=== PATIENT | female | born 1985 | race Caucasian/White ===

== ENCOUNTER 2017-02-08 19:44 | Emergency (ER) | payer OTHER ==
--- NOTE | 2017-02-08 20:42 | ED ---
Maximo Bonilla Salem, scribed for Yvon Fonseca MD on 02/08/17 at 2014 . Abdominal Pain/Female - HPI Summary HPI Summary: Patient is a 31 y/o F who presents to the ED with intermittent spotting for the past 2 weeks. She reports that [facility] (on the and the 14th of this month) and had urine tests that were both negative. She describes mild dark brown spotting at onset and mild light pink spotting upon wiping yesterday and today. She reports LLQ pain beginning 1700 today and states that she was instructed to come in if she experienced pain. LNMP was on and she states that her menstrual cycle is typically normal. She denies having a COMM[employer]CIAL FOOD [employer], but states that she has another appointment with [facility]. - History of Current Complaint Chief Complaint: EDAbdPain Stated Complaint: ABD PAIN/SPOTTING Time Seen by Provider: 02/08/17 20:07 Hx Obtained From: Patient Hx Last Menstrual Period: 2 WEEKS AGO Onset/Duration: Gradual Onset, Lasting Weeks, Still Present Timing: Intermittent Episode Lasting Severity Initially: Moderate Severity Currently: Moderate Pain Intensity: 4 Pain Scale Used: 0-10 Numeric Location: Discrete At: LLQ Radiates: No Aggravating Factor(s): Nothing Alleviating Factor(s): Nothing Associated Signs and Symptoms: Positive: Other: - "spotting" Allergies/Adverse Reactions: Allergies Allergy/AdvReac Type Severity Reaction Status Date / Time Buspirone [From Buspar] Allergy Hives Verified 12/31/16 13:40 Home Medications: Home Medications NK [No Home Medications Reported] 02/08/17 [History Confirmed 02/08/17] PMH/Surg Hx/FS Hx/Imm Hx Endocrine/Hematology History: Denies: Hx Diabetes, Hx Thyroid Disease Cardiovascular History: Denies: Hx Congestive Heart Failure, Hx Deep Vein Thrombosis, Hx Hypertension , Hx Myocardial Infarction, Hx Pacemaker/ICD Respiratory History: Denies: Hx Asthma, Hx Chronic Obstructive Pulmonary Disease (COPD), Hx Lung Cancer, Hx Pneumonia, Hx Pulmonary Embolism GI History: Denies: Hx Gall Bladder Disease, Hx Gastrointestinal Bleed, Hx Ulcer, Hx Urosepsis History: Denies: Hx Kidney Stones, Hx Renal Disease Sensory History: Reports: Hx Contacts or Glasses Denies: Hx Hearing Aid Opthamlomology History: Reports: Hx Contacts or Glasses Neurological History: Denies: Hx Dementia, Hx Migraine, Hx Seizures, Hx Transient Ischemic Attacks (TIA) Psychiatric History: Reports: Hx Anxiety, Hx Depression - On no medications for these conditions. Denies: Hx Panic Disorder, Hx Schizophrenia, Hx Bipolar Disorder - Surgical History Surgery Procedure, Year, and Place: tonsillectomy Infectious Disease History: Denies: Hx Clostridium Difficile, Hx Hepatitis, Hx Human Immunodeficiency Virus (HIV), Hx of Known/Suspected MRSA, Hx Shingles, Hx Tuberculosis, Hx Known/ Suspected VRE, Hx Known/Suspected VRSA, History Other Infectious Disease, Traveled Outside the [place] in Last 30 Days - Family History Known Family History: Positive: None, Cardiac Disease, Other - Mother -- lymphoma Negative: Hypertension - Social History Alcohol Use: Rare Hx Substance Use: No Substance Use Type: Reports: None Hx Tobacco Use: Yes - In process of quitting. Last smoked 2 weeks ago Smoking Status (MU): Light Every Day Tobacco Smoker Type: Cigarettes Amount Used/How Often: 2 CIGS/DAY 10+ YEARS Review of Systems Negative: Fever Positive: Abdominal Pain Positive: other - Intermittent spotting." All Other Systems Reviewed And Are Negative: Yes Physical Exam Triage Information Reviewed: Yes Vital Signs On Initial Exam: Initial Vitals Temp Pulse Resp BP Pulse Ox 98.4 F 102 16 125/88 98 02/08/17 19:55 02/08/17 19:55 02/08/17 19:55 02/08/17 19:55 02/08/17 19:55 Vital Signs Reviewed: Yes Appearance: Positive: Well-Appearing, No Pain Distress Skin: Positive: Warm Head/Face: Positive: Normal Head/Face Inspection Eyes: Positive: MI ENT: Positive: Hearing grossly normal Neck: Positive: Supple Respiratory/Lung Sounds: Positive: Clear to Auscultation, Breath Sounds Present Cardiovascular: Positive: RRR Abdomen Description: Positive: Nontender, Soft Bowel Sounds: Positive: Present Musculoskeletal: Positive: Strength/ROM Intact Neurological: Positive: Alert, Oriented to Person Place, Time Psychiatric: Positive: Affect/Mood Appropriate Diagnostics - Vital Signs Vital Signs Temp Pulse Resp BP Pulse Ox 02/08/17 19:55 98.4 F 102 16 125/88 98 - Laboratory Result Diagrams: 02/08/17 21:10 02/08/17 21:10 Lab Statement: Any lab studies that have been ordered have been reviewed, and results considered in the medical decision making process. Re-Evaluation - Re-Evaluation First Eval Re-Evaluation Time: 21:53 Change: Improved Comment: Reviewed results. Abdominal Pain Fem Course/Dx - Course Course Of Treatment: 31 y/o F presents with intermittent spotting for the past 2 weeks. She describes mild dark brown spotting at onset and mild light pink spotting upon wiping yesterday and today. She reports LLQ pain beginning 1700 today. LNMP was on 12/31/16. Pt will be DC'd to follow up. - Diagnoses Provider Diagnoses: Vaginal bleeding Discharge - Discharge Plan Condition: Stable Disposition: HOME Patient Education Materials: Dysfunctional Uterine Bleeding (ED) Referrals: Oanh Nunez MD [Medical Doctor] - Additional Instructions: Please follow up with Dr. Nunez (COMMER[employer]OD [employer]). The documentation as recorded by the Maximo george Salem accurately reflects the service I personally performed and the decisions made by me, Yvon Fonseca MD.
[2017-02-08 21:22] LABS: Hematocrit 41 % (35-47); Hemoglobin 13.6 g/dl (12.0-16.0); Mean Corpuscular HGB Conc 33 g/dl (31-36); Mean Corpuscular Hemoglobin 32 pg (27-31); Mean Corpuscular Volume 95 fL (80-97); Mean Platelet Volume 9 um3 (7.4-10.4); Red Cell Distribution Width 14 % (10.5-15); White Blood Count 8.8 10^3/ul (3.5-10.8)
[2017-02-08 21:37] LABS: Anion Gap 9 mmol/L (2-11); BUN/Creatinine Ratio 21.4 (8-20); Blood Urea Nitrogen 12 mg/dL (6-24); CO2 Carbon Dioxide 27 mmol/L (22-32); Calcium 9.8 mg/dL (8.6-10.3); Chloride 98 mmol/L (101-111); EGFR African American 162.4 (>60); EGFR Non-African American 126.3 (>60); Glucose 89 mg/dL (70-100); Potassium 3.6 mmol/L (3.5-5.0); Sodium 134 mmol/L (133-145)
[2017-02-08 22:17] VITALS: BP 121/91
== END 2017-02-08 22:17 | disposition home or self-care (01) ==
LOC: ED 19:44
DX: N93.9 Abnormal uterine and vaginal bleeding, unspecified (principal); R10.32 Left lower quadrant pain; Z32.02 Encounter for pregnancy test, result negative; F17.210 Nicotine dependence, cigarettes, uncomplicated
CPT/HCPCS: 36415; 80048; 84702; 85025; 99283

== ENCOUNTER 2018-05-26 12:37 | Emergency (ER) | payer SELFPAY ==
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
[2018-05-26 13:42] LABS: ABS Basophils 0 10^3/ul (0-0.2); ABS Eosinophils 0 10^3/ul (0-0.6); ABS Lymphocytes 2.2 10^3/ul (1.0-4.8); ABS Monocytes 0.6 10^3/ul (0-0.8); ABS Neutrophils 6.6 10^3/ul (1.5-7.7); ABS Nucleated RBC 0 10^3/ul; Eosinophil % 0.4 % (0-6); Hematocrit 41 % (35-47); Hemoglobin 13.9 g/dl (12.0-16.0); Lymphocyte % 23.4 % (25-47); Mean Corpuscular HGB Conc 34 g/dl (31-36); Mean Corpuscular Hemoglobin 29 pg (27-31); Mean Corpuscular Volume 86 fL (80-97); Mean Platelet Volume 7.8 um3 (7.4-10.4); Nucleated Red Blood Cells % 0.1; Platelet Count 237 10^3/ul (150-450); Red Blood Count 4.73 10^6/ul (4.00-5.40); Red Cell Distribution Width 14 % (10.5-15); White Blood Count 9.5 10^3/ul (3.5-10.8)
[2018-05-26 13:58] LABS: EGFR Non-African American 138.9 (>60)
[2018-05-26] MEDS ORDERED: LORazepam TAB(*) 1 MG PO ONE ×2 (14:10→19:21)
[2018-05-26 14:19] LABS: Urine Appearance Clear; Urine Blood 1+ (Negative); Urine Color Straw; Urine Ketones Negative (Negative); Urine Protein Negative (Negative); Urine Red Blood Cell Trace(0-2/hpf) (Absent); Urine Specific Gravity 1.004 (1.010-1.030); Urine Urobilinogen Negative (Negative); Urine White Blood Cell Absent (Absent)
[2018-05-26 18:47] VITALS: BP 121/63
--- NOTE | 2018-05-26 19:05 | ED ---
Progress - Progress Note Progress Note: Patient signed out from Dr. Mirza pending MHE. Per vegetable tester the Pt was diagnosed with anxiety and depression. She went home AMA. Course/Dx - Course Course Of Treatment: Patient signed out from Dr. Mirza pending MHE. Per vegetable tester the Pt was diagnosed with anxiety and depression. She went home AMA. - Diagnoses Provider Diagnoses: Anxiety, Depression Discharge - Sign-Out/Discharge Documenting (check all that apply): Patient Departure - Discharge Plan Condition: Stable Disposition: AGAINST MEDICAL ADVICE Referrals: [facility] [Outside] - Attestation Statements Document Initiated by Scribe: Yes Documenting Scribe: Blake Jenkins Provider For Whom Scribe is Documenting (Include Credential): Butch Gregorio MD Scribe Attestation: Blake Bonilla, scribed for Butch Gregorio MD on 05/27/18 at 0021.
== END 2018-05-26 19:58 | disposition left against medical advice (07) ==
LOC: ED 12:37
DX: F41.9 Anxiety disorder, unspecified (principal); F32.9 Major depressive disorder, single episode, unspecified; Z88.8 Allergy status to other drugs, medicaments and biological substances; F17.210 Nicotine dependence, cigarettes, uncomplicated
CPT/HCPCS: 36415; 80053; 80307; 80320; 80329; 81003; 81015; 84443; 84702; 85025; 99283; A9270-GY; G0480

== ENCOUNTER 2019-05-10 20:11 | Emergency (ER) | payer MEDICAID, OTHER ==
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
[2019-05-10] MEDS ORDERED: NS 0.9% 1000 ML** 2,000 ML IV SCH (21:00)
[2019-05-10] MEDS ORDERED: Ketorolac INJ* 30 MG/ML 1 ML VIAL IV ONE (21:25)
[2019-05-10 21:30] LABS: ABS Eosinophils 0.1 10^3/ul (0-0.6); ABS Lymphocytes 1.1 10^3/ul (1.0-4.8); ABS Monocytes 0.4 10^3/ul (0-0.8); ABS Neutrophils 4.8 10^3/ul (1.5-7.7); Hematocrit 38 % (35-47); Lymphocyte % 17.7 %; Mean Corpuscular HGB Conc 34 g/dL (31-36); Mean Corpuscular Hemoglobin 29 pg (27-31); Mean Corpuscular Volume 87 fL (80-97); Mean Platelet Volume 8.1 fL (7.4-10.4); Platelet Count 220 10^3/uL (150-450); Red Blood Count 4.42 10^6 /uL (3.70-4.87); Red Cell Distribution Width 14 % (10-15); White Blood Count 6.4 10^3/uL (3.5-10.8)
[2019-05-10 21:34] LABS: Urine Bacteria Absent (Absent); Urine Red Blood Cell 3+(>10/hpf) (Absent); Urine Squamous Epithelial Cell Present (Absent); Urine White Blood Cell 2+(11-20/hpf) (Absent)
[2019-05-10 21:40] LABS: Urine Appearance Cloudy; Urine Bilirubin 1 (Negative); Urine Blood 2+ (Negative); Urine Color Amber; Urine Glucose N (Negative); Urine Ketones 25 (Negative); Urine Nitrite Negative (Negative); Urine Protein 30 (Negative); Urine Specific Gravity 1.035 (1.010-1.030); Urine Urobilinogen 4 (Negative)
[2019-05-10 21:51] LABS: ALT 44 U/L (7-52); AST 32 U/L (13-39); Albumin 4.2 g/dL (3.2-5.2); Albumin/Globulin Ratio 1.5 (1-3); Alkaline Phosphatase 63 U/L (34-104); Anion Gap 6 mmol/L (2-11); BUN/Creatinine Ratio 15.5 (8-20); Blood Urea Nitrogen 11 mg/dL (6-24); C Reactive Protein < 1.00 mg/L (<8.01); CO2 Carbon Dioxide 29 mmol/L (22-32); Calcium 9.1 mg/dL (8.6-10.3); Chloride 102 mmol/L (101-111); EGFR Non-African American 94.2 (>60); Globulin 2.8 g/dL (2-4); Glucose 105 mg/dL (70-100); Potassium 3.6 mmol/L (3.5-5.0); Sodium 137 mmol/L (135-145)
[2019-05-10 21:58] LABS: HCG Pregnancy < 0.60 mIU/mL
[2019-05-10] MEDS ORDERED: Morphine 4 MG/ML VIAL (1 ml) 4 MG/ML VIAL IV ONE (22:40)
[2019-05-10] MEDS ORDERED: Ondansetron INJ* 2 MG/ML VIAL IV ONE (22:40)
[2019-05-10] MEDS ORDERED: oxyCODONE/Acetamin 5/325 MG* TAB PO ONE (23:05)
[2019-05-10] MEDS ORDERED: NS 0.9% 1000 ML** 1,000 ML IV ONE (23:23)
--- NOTE | 2019-05-10 23:33 | ED ---
Progress - Progress Note Progress Note: Patient is received as a sign out from Dr. Loja to Dr. Gregorio at 05/10/[address] ABD/PEL results. CT ABD/PEL IMPRESSION: No CT findings to correlate with patient's symptomatology. Specifically no obstructing renal or ureteral calculi. THIS REPORT WAS REVIEWED BY DR. GREGORIO. Re-Evaluation - Re-Evaluation First Eval Re-Evaluation Time: 21:44 Change: Improved Comment: pain is improved after Toradol 30 mg IV. no guarding, no rebound Second Eval Re-Evaluation Time: 22:15 Change: Unchanged Comment: Pelvic exam completed with friend Noris in room, and Shon as blood bank worker. Pt's pain is returning, will given morphine 4mg and zofran 4mg IV. Discussed differential dx. Awaiting US report. Pt advised that she is not . Third Eval Re-Evaluation Time: 23:15 Change: Unchanged Comment: Pt just getting morphine and zofran IV and one oral percocet. Discussed US results. Pt still with significant pain, radiating to her back, will order CT abd and pelvis. Pt has blood and 2+ rbc's in her UA, but she does have vaginal bleeding. A cousin has kidney stones. Pt agrees to CT abd/ pelvis. It is explained to her that it is radiation, and she wishes to proceed. Course/Dx - Course Course Of Treatment: Patient is received as a sign out from Dr. Loja to Dr. Gregorio at 05/10/[address] ABD/PEL results. CT ABD/PEL IMPRESSION : No CT findings to correlate with patient's symptomatology. Specifically no. obstructing renal or ureteral calculi. Patient was discharged to home and will follow up with PCP. - Diagnoses Provider Diagnoses: Pelvic pain Discharge ED - Sign-Out/Discharge Documenting (check all that apply): Patient Departure - DISCHARGE - Discharge Plan Condition: Stable Disposition: HOME Patient Education Materials: Pelvic Pain (ED) Forms: *Work Release Referrals: [facility] [Outside] - 2 Days Milton Iverson JR, DO [Doctor of Osteopathy] - If Needed Additional Instructions: We have given you a copy of your ultrasound results tonight, showing normal ovaries by ultrasound and a small uterine fibroid. You also had a CT of your abdomen and pelvis which was normal. At the time you are discharged the studies that were done during your pelvic exam are still pending. We will contact you if you need further treatment based on those results. In the ER you were given IV fluids, ketorolac 30mg IV, morphine 4mg IV and ondansetron 4mg IV and percocet 5/325mg orally. Please return to the ER if you have any new or worsening symptoms. - Billing Disposition and Condition Condition: STABLE Disposition: Home - Attestation Statements Document Initiated by Valorie: Yes Documenting Scribe: ALVARO RICO Provider For Whom Valorie is Documenting (Include Credential): PEPE GREGORIO MD Scribe Attestation: ALVARO Bonilla, scribed for PEPE GREGORIO MD on 05/11/19 at 0545. Scribe Documentation Reviewed: Yes Provider Attestation: The documentation as recorded by the ALVARO george accurately reflects the service I personally performed and the decisions made by me, PEPE GREGORIO MD Status of Scribe Document: Viewed
[2019-05-11 01:21] VITALS: BP 149/95
[2019-05-11 13:19] LABS: Chlamydia trachomatis NAA Negative (Negative); Neisseria gonorrhoeae (GC) NAA Negative (Negative)
--- NOTE | 2019-05-12 10:40 | ED ---
Imaging and Labs Follow Up Follow Up Type: Labs/Cultures Labs/Culture Result: Vaginal culture positive for gardnerella Patient Communication/Plan: Attempted to call pt. today at 1000 with no answer or voicemail. Rx for flagyl sent to pharmacy. WIll send letter to return call. Provider Diagnoses: Pelvic pain
== END 2019-05-11 01:21 | disposition home or self-care (01) ==
LOC: ED 20:11
DX: N93.9 Abnormal uterine and vaginal bleeding, unspecified (principal); R10.2 Pelvic and perineal pain; D25.9 Leiomyoma of uterus, unspecified; E80.4 Gilbert syndrome; R03.0 Elevated blood-pressure reading, without diagnosis of hypertension; F41.9 Anxiety disorder, unspecified; F32.9 Major depressive disorder, single episode, unspecified; F43.10 Post-traumatic stress disorder, unspecified; F17.210 Nicotine dependence, cigarettes, uncomplicated; R53.83 Other fatigue; R10.84 Generalized abdominal pain
CPT/HCPCS: 36415; 74176; 76830; 80053; 81003; 81015; 83605; 84702; 85025; 86140; 87086; 87480; 87491; 87510; 87591; 87661; 96361; 96374; 96375; 99283; A9270-GY; J1885; J2270; J2405

== ENCOUNTER 2019-08-18 16:08 | Emergency (ER) | payer SELFPAY ==
[2019-08-18 17:29] VITALS: BP 110/79
[2019-08-18] MEDS ORDERED: Ketorolac INJ* 30 MG/ML 1 ML VIAL IM ONE (17:44)
[2019-08-18] MEDS ORDERED: Penicillin VK TAB* 250 MG PO ONE (17:44)
--- NOTE | 2019-08-18 17:44 | UC ---
Dental HPI - HPI Summary HPI Summary: The patient is a 34-year-old female with a three-day history of a left lower molar abscess. She states she broke that tooth months ago. She is waiting for her insurance to kick in to see a dentist. Her left cheek feels slightly swollen. She has had no fever. She denies any history of diabetes. She states she has never been told she had a heart murmur. She has had no nausea or vomiting. She denies any chest pain or shortness of breath. - History of Current Complaint Chief Complaint: UCDentalProblem Stated Complaint: DENTAL PAIN Time Seen by Provider: 08/18/19 17:36 Hx Obtained From: Patient Hx Last Menstrual Period: 08/17/19 Onset/Duration: Gradual Onset, Lasting Days Severity: Severe Pain Intensity: 8 Pain Scale Used: 0-10 Numeric Aggravating Factor(s): Chewing Alleviating Factor(s): Nothing Related History: Swelling Dental: 1 - fractured tooth 2 - abscess - Allergies/Home Medications Allergies/Adverse Reactions: Allergies Allergy/AdvReac Type Severity Reaction Status Date / Time buspirone [From BuSpar] Allergy Anaphylatic Verified 08/18/19 17:29 Shock Home Medications: Home Medications Cholecalciferol (Vitamin D3) [Vitamin D3] 1 tab PO DAILY 08/18/19 [History Confirmed 08/18/19] Ibuprofen [Advil] 400 mg PO ONCE PRN 08/18/19 [History Confirmed 08/18/19] PMH/Surg Hx/FS Hx/Imm Hx Previously Healthy: Yes - Surgical History Surgical History: Yes Surgery Procedure, Year, and Place: tonsillectomy - Family History Known Family History: Positive: Cardiac Disease, Other - Mother -- lymphoma; neg family hx of renal calculi Negative: Hypertension - Social History Alcohol Use: Occasionally Alcohol Amount: 3x Substance Use Type: Marijuana Smoking Status (MU): Light Every Day Tobacco Smoker Type: Cigarettes Amount Used/How Often: 2 CIGS/DAY 10+ YEARS, now 1/4 PPD Review of Systems All Other Systems Reviewed And Are Negative: Yes Constitutional: Positive: Negative Skin: Positive: Negative Eyes: Positive: Negative ENT: Positive: Dental Pain Respiratory: Positive: Negative Cardiovascular: Positive: Negative Gastrointestinal: Positive: Negative Genitourinary: Positive: Negative Motor: Positive: Negative Neurovascular: Positive: Negative Musculoskeletal: Positive: Negative Neurological: Positive: Negative Psychological: Positive: Negative Physical Exam Triage Information Reviewed: Yes Appearance: Well-Appearing, No Pain Distress, Well-Nourished Vital Signs: Initial Vital Signs Temp 98.4 F 08/18/19 17:23 Pulse 82 08/18/19 17:23 Resp 18 08/18/19 17:23 BP 110/79 08/18/19 17:23 Pulse Ox 100 08/18/19 17:23 Vital Signs Reviewed: Yes Eyes: Positive: Conjunctiva Clear ENT: Positive: Hearing grossly normal, Dental tenderness, Uvula midline. Negative: Nasal congestion, Nasal drainage, Tonsillar swelling, Tonsillar exudate, Trismus, Muffled voice, Hoarse voice, Sinus tenderness Dental: Positive: Other: - see image Neck: Positive: Supple, Nontender, No Lymphadenopathy Respiratory: Positive: Lungs clear, Normal breath sounds, No respiratory distress Cardiovascular: Positive: RRR, No Murmur Musculoskeletal: Positive: ROM Intact, No Edema Neurological: Positive: Alert Psychological Exam: Normal Skin Exam: Normal Dental Complaint Course/Dx - Differential Dx/Diagnosis Provider Diagnosis: Dental abscess Discharge ED - Sign-Out/Discharge Documenting (check all that apply): Patient Departure All imaging exams completed and their final reports reviewed: No Studies - Discharge Plan Condition: Stable Disposition: HOME Prescriptions: Penicillin VK 500 MG TAB(NF) [Penicillin VK 500 mg Tab] 500 mg PO QID #28 tab Patient Education Materials: Dental Abscess (ED) Referrals: [facility] [Outside] - If Needed Additional Instructions: you will need to see a dentist to have that tooth addressed advil 3 4x day with food for pain recheck if not improved in 48 hours recheck for new or worsening symptoms - Billing Disposition and Condition Condition: STABLE Disposition: Home
== END 2019-08-18 17:55 | disposition home or self-care (01) ==
LOC: UCEAST 16:08
DX: K04.7 Periapical abscess without sinus (principal); F17.210 Nicotine dependence, cigarettes, uncomplicated; Z88.8 Allergy status to other drugs, medicaments and biological substances
CPT/HCPCS: 96372; 99212; A9270-GY; G0463; J1885

== ENCOUNTER 2019-08-29 16:57 | Emergency (ER) | payer SELFPAY ==
[2019-08-29] MEDS ORDERED: Diazepam TAB(*) 5 MG PO ONE (17:47)
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
[2019-08-29 18:20] LABS: ABS Lymphocytes 1.3 10^3/ul (1.0-4.8); ABS Monocytes 0.4 10^3/ul (0-0.8); ABS Neutrophils 5.9 10^3/ul (1.5-7.7); Eosinophil % 0.2 %; Hematocrit 37 % (35-47); Hemoglobin 12.5 g/dL (12.0-16.0); Lymphocyte % 17.1 %; Mean Corpuscular HGB Conc 34 g/dL (31-36); Mean Corpuscular Hemoglobin 30 pg (27-31); Mean Corpuscular Volume 87 fL (80-97); Mean Platelet Volume 8.6 fL (7.4-10.4); Platelet Count 241 10^3/uL (150-450); Red Blood Count 4.24 10^6 /uL (3.70-4.87); Red Cell Distribution Width 13 % (10-15); White Blood Count 7.7 10^3/uL (3.5-10.8)
[2019-08-29 18:28] LABS: Urine Appearance Cloudy; Urine Bilirubin Negative (Negative); Urine Blood Negative (Negative); Urine Color Yellow; Urine Glucose Negative (Negative); Urine Ketones Negative (Negative); Urine Nitrite Negative (Negative); Urine Protein 1+(30 mg/dL) (Negative); Urine Specific Gravity 1.021 (1.010-1.030); Urine Urobilinogen Negative (Negative)
[2019-08-29 18:37] LABS: ALT 100 U/L (7-52); AST 80 U/L (13-39); Albumin 4.5 g/dL (3.2-5.2); Albumin/Globulin Ratio 1.7 (1-3); Alkaline Phosphatase 55 U/L (34-104); Anion Gap 9 mmol/L (2-11); BUN/Creatinine Ratio 16.9 (8-20); Blood Urea Nitrogen 10 mg/dL (6-24); C Reactive Protein < 1.00 mg/L (<8.01); CO2 Carbon Dioxide 28 mmol/L (22-32); Calcium 9.3 mg/dL (8.6-10.3); Chloride 99 mmol/L (101-111); EGFR African American 141.2 (>60); EGFR Non-African American 116.7 (>60); Globulin 2.7 g/dL (2-4); Glucose 89 mg/dL (70-100); Potassium 3.9 mmol/L (3.5-5.0); Sodium 136 mmol/L (135-145); Total Protein 7.2 g/dL (6.4-8.9)
[2019-08-29 18:38] LABS: Urine Bacteria Absent (Absent); Urine Red Blood Cell Absent (Absent); Urine Squamous Epithelial Cell Present (Absent); Urine White Blood Cell Absent (Absent)
[2019-08-29] MEDS ORDERED: Ondansetron INJ* 2 MG/ML VIAL IV ONE (18:42)
[2019-08-29] MEDS ORDERED: Morphine 4 MG/ML VIAL (1 ml) 4 MG/ML VIAL IV ONE (18:42)
[2019-08-29] MEDS ORDERED: NS 0.9% 1000 ML** 1,000 ML IV ONE (18:42)
[2019-08-29 18:43] LABS: HCG Pregnancy < 0.60 mIU/mL
[2019-08-29] MEDS ORDERED: Iohexol 300* (CONTRAST) 10 ML SDV IV ONE (18:52)
[2019-08-29] MEDS ORDERED: Ketorolac INJ* 30 MG/ML 1 ML VIAL IM ONE (20:14)
[2019-08-29 20:54] VITALS: BP 119/96
== END 2019-08-29 20:40 | disposition home or self-care (01) ==
LOC: ED 16:57
DX: M62.830 Muscle spasm of back (principal); R10.9 Unspecified abdominal pain; F41.9 Anxiety disorder, unspecified; F32.9 Major depressive disorder, single episode, unspecified; F43.10 Post-traumatic stress disorder, unspecified; F17.210 Nicotine dependence, cigarettes, uncomplicated; Z88.8 Allergy status to other drugs, medicaments and biological substances
CPT/HCPCS: 36415; 74177; 76705; 80053; 81003; 81015; 83690; 84702; 85025; 86140; 96361; 96372; 96374; 96375; 99283; A9270-GY; J1885; J2270; J2405; Q9967

== ENCOUNTER 2019-08-30 17:17 | Emergency (ER) | payer SELFPAY ==
[2019-08-30] MEDS ORDERED: NS 0.9% 1000 ML** 1,000 ML IV ONE (18:27)
[2019-08-30] MEDS ORDERED: Ondansetron INJ* 2 MG/ML VIAL IV ONE ×2 (18:27→20:37)
[2019-08-30 18:43] LABS: ABS Eosinophils 0.1 10^3/ul (0-0.6); ABS Lymphocytes 1.1 10^3/ul (1.0-4.8); ABS Monocytes 0.3 10^3/ul (0-0.8); Eosinophil % 1.4 %; Hematocrit 37 % (35-47); Hemoglobin 12.4 g/dL (12.0-16.0); Lymphocyte % 20.2 %; Mean Corpuscular HGB Conc 34 g/dL (31-36); Mean Corpuscular Hemoglobin 30 pg (27-31); Mean Corpuscular Volume 88 fL (80-97); Mean Platelet Volume 8.3 fL (7.4-10.4); Platelet Count 217 10^3/uL (150-450); Red Cell Distribution Width 13 % (10-15); White Blood Count 5.6 10^3/uL (3.5-10.8)
[2019-08-30] MEDS ORDERED: Ketorolac INJ* 30 MG/ML 1 ML VIAL IV PUSH ONE (18:50)
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
[2019-08-30 19:07] LABS: ALT 65 U/L (7-52); AST 30 U/L (13-39); Albumin/Globulin Ratio 1.6 (1-3); Alkaline Phosphatase 48 U/L (34-104); Amylase 23 U/L (29-103); Anion Gap 6 mmol/L (2-11); BUN/Creatinine Ratio 13.8 (8-20); Blood Urea Nitrogen 9 mg/dL (6-24); C Reactive Protein < 1.00 mg/L (<8.01); CO2 Carbon Dioxide 28 mmol/L (22-32); Calcium 8.8 mg/dL (8.6-10.3); Chloride 104 mmol/L (101-111); EGFR African American 126.3 (>60); EGFR Non-African American 104.3 (>60); Globulin 2.5 g/dL (2-4); Glucose 91 mg/dL (70-100); Potassium 3.6 mmol/L (3.5-5.0); Sodium 138 mmol/L (135-145); Total Protein 6.5 g/dL (6.4-8.9)
[2019-08-30 19:14] LABS: HCG Pregnancy < 0.60 mIU/mL
[2019-08-30] MEDS ORDERED: Morphine 4 MG/ML VIAL (1 ml) 4 MG/ML VIAL IV ONE (20:37)
[2019-08-30] MEDS ORDERED: Methocarbamol TAB* 500 MG PO ONE (20:38)
[2019-08-30 21:38] VITALS: BP 118/68
== END 2019-08-30 21:37 | disposition home or self-care (01) ==
LOC: ED 17:17
DX: M54.6 Pain in thoracic spine (principal); R10.11 Right upper quadrant pain; R19.7 Diarrhea, unspecified; R11.10 Vomiting, unspecified; Z88.8 Allergy status to other drugs, medicaments and biological substances; F17.210 Nicotine dependence, cigarettes, uncomplicated
CPT/HCPCS: 36415; 80053; 82150; 83605; 83690; 84702; 85025; 86140; 96361; 96374; 96375; 96376; 99283; A9270-GY; J1885; J2270; J2405

== ENCOUNTER 2019-10-10 11:13 | Emergency (ER) | payer SELFPAY ==
--- NOTE | 2019-10-10 15:56 | UC ---
Respiratory Complaint HPI - HPI Summary HPI Summary: 5 days of intermittent back pain, fever vomiting,some discomfort with voiding is also coughing but does states she smokes alot--no known illness exposures but works in a restaurant - History of Current Complaint Chief Complaint: UCGeneralIllness Stated Complaint: FEVER,CHEST CONGESTION,VOMITTING Time Seen by Provider: 10/10/19 15:52 Hx Obtained From: Patient Hx Last Menstrual Period: 08/17/19 ?: No Onset/Duration: Sudden Onset, Lasting Days - 5, Still Present Timing: Intermittent Episodes Severity Initially: Moderate Severity Currently: Moderate Character: Cough: Nonproductive Aggravating Factors: Nothing Alleviating Factors: Nothing Associated Signs And Symptoms: Positive: Fever - Allergies/Home Medications Allergies/Adverse Reactions: Allergies Allergy/AdvReac Type Severity Reaction Status Date / Time buspirone [From BuSpar] Allergy Anaphylatic Verified 10/10/19 15:58 Shock Home Medications: Home Medications Cholecalciferol (Vitamin D3) [Vitamin D3] 1 tab PO DAILY 08/18/19 [History Confirmed 10/10/19] PMH/Surg Hx/FS Hx/Imm Hx Previously Healthy: Yes - Surgical History Surgical History: Yes Surgery Procedure, Year, and Place: tonsillectomy - Family History Known Family History: Positive: Cardiac Disease, Other - Mother -- lymphoma; neg family hx of renal calculi Negative: Hypertension - Social History Occupation: Employed Full-time Lives: With Family Alcohol Use: Weekly Alcohol Amount: 3x Substance Use Type: Marijuana Substance Use Comment - Amount & Last Used: daily Smoking Status (MU): Light Every Day Tobacco Smoker Type: Cigarettes Amount Used/How Often: 2 CIGS/DAY 10+ YEARS, now 1/4 PPD Have You Smoked in the Last Year: Yes Review of Systems All Other Systems Reviewed And Are Negative: Yes Constitutional: Positive: Fever, Chills, Fatigue Skin: Positive: Negative Eyes: Positive: Negative ENT: Positive: Negative Respiratory: Positive: Cough Cardiovascular: Positive: Negative Gastrointestinal: Positive: Vomiting, Nausea Genitourinary: Positive: Dysuria Motor: Positive: Negative Neurovascular: Positive: Negative Musculoskeletal: Positive: Arthralgia - mid back pain Neurological/Mental Status: Positive: Negative Psychological: Positive: Negative Is Patient Immunocompromised?: No Physical Exam Triage Information Reviewed: Yes Appearance: Well-Nourished, Ill-Appearing, Pain Distress - mild Vital Signs Reviewed: Yes Eye Exam: Normal Eyes: Positive: Conjunctiva Clear ENT Exam: Normal ENT: Positive: Normal ENT inspection, Hearing grossly normal, Pharynx normal, TMs normal, Uvula midline. Negative: Nasal congestion, Tonsillar swelling, Tonsillar exudate, Trismus, Muffled voice, Hoarse voice, Dental tenderness, Sinus tenderness Dental Exam: Normal Neck exam: Normal Neck: Positive: Supple, Nontender, No Lymphadenopathy Respiratory Exam: Normal Respiratory: Positive: Chest non-tender, Lungs clear, Normal breath sounds, No respiratory distress, No accessory muscle use Cardiovascular Exam: Normal Cardiovascular: Positive: RRR, No Murmur, Pulses Normal, Brisk Capillary Refill Abdominal Exam: Normal Abdomen Description: Positive: Nontender, No Organomegaly, Soft, CVA Tenderness (R), CVA Tenderness (L) Bowel Sounds: Positive: Present Musculoskeletal Exam: Normal Musculoskeletal: Positive: Strength Intact, ROM Intact, No Edema Neurological Exam: Normal Neurological: Positive: Alert, Muscle Tone Normal Psychological Exam: Normal Skin Exam: Normal Respiratory Course/Dx - Course Course Of Treatment: patient is going to ED for further assessment of fever back pain and hematuria-- - Differential Dx/Diagnosis Provider Diagnosis: Hematuria, Fever and chills Discharge ED - Sign-Out/Discharge Documenting (check all that apply): Patient Departure All imaging exams completed and their final reports reviewed: No Studies - Discharge Plan Condition: Stable Disposition: HOME Patient Education Materials: Fever in Adults (ED), Hematuria (ED) Referrals: No Primary Care Phys,NOPCP [Primary Care Provider] - Additional Instructions: Please go to the emergency department for further care and assessment - Billing Disposition and Condition Condition: STABLE Disposition: Home
[2019-10-10 15:58] VITALS: BP 121/82
[2019-10-10 16:20] LABS: Influenza A Molecular Negative (Negative); Influenza B Molecular Negative (Negative)
== END 2019-10-10 16:53 | disposition home or self-care (01) ==
LOC: UCEAST 11:13
DX: R50.9 Fever, unspecified (principal); R31.9 Hematuria, unspecified; M54.9 Dorsalgia, unspecified; R09.89 Other specified symptoms and signs involving the circulatory and respiratory systems; R11.2 Nausea with vomiting, unspecified; R30.0 Dysuria; F17.210 Nicotine dependence, cigarettes, uncomplicated; Z88.8 Allergy status to other drugs, medicaments and biological substances
CPT/HCPCS: 81003; 84702; 87077; 87086; 99212; G0463

== ENCOUNTER 2019-10-10 17:22 | Emergency (ER) | payer SELFPAY ==
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
[2019-10-10 20:50] LABS: ABS Basophils 0.1 10^3/ul (0-0.2); ABS Eosinophils 0.1 10^3/ul (0-0.6); ABS Lymphocytes 1.6 10^3/ul (1.0-4.8); ABS Monocytes 0.6 10^3/ul (0-0.8); ABS Neutrophils 5.7 10^3/ul (1.5-7.7); Eosinophil % 0.9 %; Hematocrit 38 % (35-47); Hemoglobin 13.3 g/dL (12.0-16.0); Lymphocyte % 19.8 %; Mean Corpuscular HGB Conc 35 g/dL (31-36); Mean Corpuscular Hemoglobin 30 pg (27-31); Mean Corpuscular Volume 87 fL (80-97); Mean Platelet Volume 8.4 fL (7.4-10.4); Platelet Count 248 10^3/uL (150-450); Red Blood Count 4.41 10^6 /uL (3.70-4.87); Red Cell Distribution Width 14 % (10-15); White Blood Count 7.9 10^3/uL (3.5-10.8)
[2019-10-10 21:12] LABS: ALT 56 U/L (7-52); AST 34 U/L (13-39); Albumin 4.4 g/dL (3.2-5.2); Albumin/Globulin Ratio 1.4 (1-3); Alkaline Phosphatase 75 U/L (34-104); Anion Gap 6 mmol/L (2-11); BUN/Creatinine Ratio 16.9 (8-20); Blood Urea Nitrogen 11 mg/dL (6-24); C Reactive Protein < 1.00 mg/L (<8.01); CO2 Carbon Dioxide 30 mmol/L (22-32); Calcium 9.7 mg/dL (8.6-10.3); Chloride 101 mmol/L (101-111); EGFR African American 126.3 (>60); EGFR Non-African American 104.3 (>60); Globulin 3.1 g/dL (2-4); Glucose 94 mg/dL (70-100); Potassium 3.4 mmol/L (3.5-5.0); Sodium 137 mmol/L (135-145); Total Protein 7.5 g/dL (6.4-8.9)
[2019-10-10 21:18] LABS: HCG Pregnancy < 0.60 mIU/mL
[2019-10-10] MEDS ORDERED: oxyCODONE TAB* 5 MG TAB PO ONE (21:51)
[2019-10-10 21:52] LABS: Urine Appearance Turbid; Urine Bilirubin Negative (Negative); Urine Blood Negative (Negative); Urine Color Yellow; Urine Glucose Negative (Negative); Urine Ketones Trace (Negative); Urine Nitrite Negative (Negative); Urine Protein Negative (Negative); Urine Specific Gravity 1.028 (1.010-1.030); Urine Urobilinogen Negative (Negative)
[2019-10-10] MEDS ORDERED: Ketorolac INJ* 30 MG/ML 1 ML VIAL IV ONE (22:06)
[2019-10-10] MEDS ORDERED: NS 0.9% 1000 ML** 1,000 ML IV.FLUID IV ONE (22:17)
[2019-10-10] MEDS ORDERED: Ondansetron ODT TAB* 4 MG PO ONE (23:21)
[2019-10-10 23:46] VITALS: BP 128/84
== END 2019-10-10 23:45 | disposition home or self-care (01) ==
LOC: ED 17:22
DX: N20.0 Calculus of kidney (principal); R50.9 Fever, unspecified; M54.9 Dorsalgia, unspecified; R10.84 Generalized abdominal pain; R51 Headache; R11.2 Nausea with vomiting, unspecified; F17.210 Nicotine dependence, cigarettes, uncomplicated; E86.0 Dehydration; M54.5 Low back pain; F41.9 Anxiety disorder, unspecified
CPT/HCPCS: 36415; 76775; 80053; 81003; 83605; 84702; 85025; 86140; 96361; 96374; 99283; A9270-GY; J1885

== ENCOUNTER 2019-10-30 15:52 | Emergency (ER) | payer MEDICAID ==
[2019-10-30] MEDS ORDERED: NS 0.9% 1000 ML** 1,000 ML IV ONE (16:03)
[2019-10-30] MEDS ORDERED: Ondansetron INJ* 2 MG/ML VIAL IV ONE (16:03)
[2019-10-30] MEDS ORDERED: Ketorolac INJ* 30 MG/ML 1 ML VIAL IV ONE (16:03)
[2019-10-30 16:23] LABS: ABS Basophils 0.1 10^3/ul (0-0.2); ABS Eosinophils 0.1 10^3/ul (0-0.6); ABS Lymphocytes 1.5 10^3/ul (1.0-4.8); ABS Monocytes 0.4 10^3/ul (0-0.8); ABS Neutrophils 5.4 10^3/ul (1.5-7.7); Eosinophil % 1.3 %; Hematocrit 39 % (35-47); Hemoglobin 13.3 g/dL (12.0-16.0); Lymphocyte % 19.6 %; Mean Corpuscular HGB Conc 34 g/dL (31-36); Mean Corpuscular Hemoglobin 29 pg (27-31); Mean Corpuscular Volume 87 fL (80-97); Platelet Count 274 10^3/uL (150-450); Red Blood Count 4.52 10^6 /uL (3.70-4.87); Red Cell Distribution Width 14 % (10-15); White Blood Count 7.4 10^3/uL (3.5-10.8)
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
[2019-10-30] MEDS ORDERED: Morphine 4 MG/ML VIAL (1 ml) 4 MG/ML VIAL IV ONE (16:32)
[2019-10-30 16:43] LABS: ALT 26 U/L (7-52); AST 18 U/L (13-39); Albumin 4.5 g/dL (3.2-5.2); Albumin/Globulin Ratio 1.6 (1-3); Alkaline Phosphatase 47 U/L (34-104); Anion Gap 7 mmol/L (2-11); Blood Urea Nitrogen 11 mg/dL (6-24); CO2 Carbon Dioxide 24 mmol/L (22-32); Calcium 9.4 mg/dL (8.6-10.3); Chloride 102 mmol/L (101-111); EGFR African American 135.9 (>60); EGFR Non-African American 112.3 (>60); Globulin 2.9 g/dL (2-4); Glucose 103 mg/dL (70-100); Sodium 133 mmol/L (135-145); Total Protein 7.4 g/dL (6.4-8.9)
[2019-10-30 16:50] LABS: HCG Pregnancy < 0.60 mIU/mL
[2019-10-30] MEDS ORDERED: oxyCODONE/Acetamin 5/325 MG* TAB PO ONE (17:35)
[2019-10-30 18:22] LABS: Urine Appearance Clear; Urine Bilirubin Negative (Negative); Urine Blood Negative (Negative); Urine Color Yellow; Urine Glucose Negative (Negative); Urine Ketones Negative (Negative); Urine Nitrite Negative (Negative); Urine Protein Negative (Negative); Urine Specific Gravity 1.011 (1.010-1.030); Urine Urobilinogen Negative (Negative)
[2019-10-30 20:04] VITALS: BP 128/80
== END 2019-10-30 19:47 | disposition home or self-care (01) ==
LOC: ED 15:52
DX: R10.84 Generalized abdominal pain (principal); R11.2 Nausea with vomiting, unspecified; Z87.442 Personal history of urinary calculi; F17.210 Nicotine dependence, cigarettes, uncomplicated; Z88.8 Allergy status to other drugs, medicaments and biological substances
CPT/HCPCS: 36415; 74176; 76775; 80053; 81003; 84702; 85025; 96361; 96374; 96375; 99283; A9270-GY; J1885; J2270; J2405

== ENCOUNTER 2019-11-18 16:57 | Observation (INO) | payer MEDICAID ==
[2019-11-18] MEDS ORDERED: Pantoprazole IV* 40 MG IV ONE (18:41)
[2019-11-18] MEDS ORDERED: Ondansetron INJ* 2 MG/ML VIAL IV ONE ×2 (18:41→20:00)
[2019-11-18] MEDS ORDERED: NS 0.9% 1000 ML** 1,000 ML IV ONE (18:59)
[2019-11-18] MEDS ORDERED: Morphine 4 MG/ML VIAL (1 ml) 4 MG/ML VIAL IV ONE (19:00)
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
[2019-11-18 19:30] LABS: ABS Basophils 0.1 10^3/ul (0-0.2); ABS Lymphocytes 1.8 10^3/ul (1.0-4.8); ABS Neutrophils 15.6 10^3/ul (1.5-7.7); Eosinophil % 0.1 %; Hematocrit 38 % (35-47); Hemoglobin 13.4 g/dL (12.0-16.0); Lymphocyte % 9.5 %; Mean Corpuscular HGB Conc 35 g/dL (31-36); Mean Corpuscular Hemoglobin 29 pg (27-31); Mean Corpuscular Volume 84 fL (80-97); Mean Platelet Volume 8.1 fL (7.4-10.4); Platelet Count 304 10^3/uL (150-450); Red Blood Count 4.54 10^6 /uL (3.70-4.87); Red Cell Distribution Width 14 % (10-15); White Blood Count 18.4 10^3/uL (3.5-10.8)
[2019-11-18 19:36] LABS: INR 1.1 (0.82-1.09)
[2019-11-18 19:48] LABS: ALT 30 U/L (7-52); AST 17 U/L (13-39); Albumin/Globulin Ratio 1.5 (1-3); Alkaline Phosphatase 50 U/L (34-104); Anion Gap 13 mmol/L (2-11); BUN/Creatinine Ratio 17.5 (8-20); Blood Urea Nitrogen 10 mg/dL (6-24); C Reactive Protein < 1.00 mg/L (<8.01); CO2 Carbon Dioxide 28 mmol/L (22-32); Calcium 9.6 mg/dL (8.6-10.3); Chloride 95 mmol/L (101-111); EGFR African American 146.9 (>60); EGFR Non-African American 121.4 (>60); Globulin 3.3 g/dL (2-4); Glucose 92 mg/dL (70-100); Potassium 3.9 mmol/L (3.5-5.0); Sodium 136 mmol/L (135-145); Total Protein 8.3 g/dL (6.4-8.9)
[2019-11-18 19:53] LABS: HCG Pregnancy < 0.60 mIU/mL
[2019-11-18] MEDS ORDERED: LORazepam INJ* 2 MG/ML 1 ML VIAL IV PUSH ONE (20:00)
[2019-11-18] MEDS ORDERED: Lorazepam PYXIS KEY PRN (20:00)
[2019-11-18] MEDS ORDERED: Morphine INJ* 2 MG/ML 1 ML SYRINGE (TWO MG - NEW SYRINGE VERSION) IV ONE (20:01)
[2019-11-18] MEDS ORDERED: Iohexol 300* (CONTRAST) 10 ML SDV IV ONE (20:05)
[2019-11-18] MEDS ORDERED: Lorazepam PYXIS KEY ONE (20:32)
[2019-11-18] MEDS ORDERED: Nicotine* 2MG (FRUIT FLAVOR) GUM PO PRN (21:23)
[2019-11-18] MEDS ORDERED: PROCHLORPERAZINE INJ 5 MG/ML 2 ML VIAL IV PRN (21:23)
[2019-11-18] MEDS ORDERED: Acetaminophen TAB* 325 MG PO PRN (21:23)
[2019-11-18] MEDS ORDERED: cefTRIAXone(*) 1 GM in NS 0.9% 50 ML* 50 ML IVPB ONE (21:29)
[2019-11-18 21:54] LABS: Urine Appearance Clear; Urine Bilirubin Negative (Negative); Urine Blood Negative (Negative); Urine Color Yellow; Urine Glucose Negative (Negative); Urine Ketones 1+ (Negative); Urine Nitrite Negative (Negative); Urine Protein Negative (Negative); Urine Specific Gravity 1.058 (1.010-1.030); Urine Urobilinogen Negative (Negative)
[2019-11-18 22:12] LABS: Urine Benzodiazepine Screen None Detected (None Detect); Urine Opiates Screen Presumptive Positive (None Detect)
[2019-11-18 22:29] LABS: Hematocrit 37 % (35-47); Hemoglobin 12.5 g/dL (12.0-16.0)
[2019-11-18] MEDS: NS 0.9% 1000 ML** 1,000 ML IV SCH (23:54)
[2019-11-19] MEDS: Morphine INJ* 2 MG/ML 1 ML SYRINGE (TWO MG - NEW SYRINGE VERSION) IV PRN ×5 (00:08→11:46)
[2019-11-19] MEDS: Ondansetron INJ* 2 MG/ML VIAL IV PRN ×2 (00:09→10:15)
--- NOTE | 2019-11-19 00:18 | HP ---
CC: Dr. Alston* HISTORY AND PHYSICAL: DATE OF ADMISSION: 11/18/19 PRIMARY CARE PROVIDER: None. ATTENDING PHYSICIAN WHILE IN THE HOSPITAL: Dr. Cary Camarena* (report being dictated by Tony Anaya NP). CHIEF COMPLAINT: Left flank pain. HISTORY OF PRESENTING ILLNESS: Ms. Degroot is a 34-year-old female patient who has been having intermittent flank pain with an unclear etiology for sometime. She states that back in May she was diagnosed with UTI, possible kidney infection; was placed on Flagyl; symptoms resolved and she did well. Unfortunately though approximately 2 to 3 weeks ago and in August, she also noted intermittent episodes of having left flank pain, described as sharp, stabbing pain that was intermittent in nature. She noted that this happened about a month ago, it started acting up again, it was getting worse. She actually came into the ER, had a renal ultrasound which did show a possible 0.7 cm stone, but then had a CT of the abdomen and pelvis which did not show the stone. She was referred to Urology, she has not been seen yet. She states that unfortunately though over the last 24 hours, the pain got much worse in the left side, described as sharp, stabbing type discomfort in her left flank with no urinary symptoms, no fevers or chills, no URI or cough symptoms, no myalgias, no nausea or vomiting, no diarrhea. She had been feeling nauseated with the pain. She actually had some vomit this morning and yesterday that was scant with blood streaks at times; however, this evening, the blood became more ne and more pronounced and she was concerned. She called a friend, who is a nurse practitioner, and they advised coming to the ER. She states that she is not on any blood thinners, does not take any medications routinely. She states that she does not drink alcohol, but she does smoke half a pack a day for about 14 years. She occasionally does do cocaine. She smokes marijuana daily. She has done beata in the past as well. She did take Zofran today which helped, but the vomiting persisted and the pain was getting worse in the left flank, so she was concerned and came into the hospital for further evaluation. She was evaluated in the ER. She did vomit out some bright red blood. It was positive for blood on Hemoccult. She denies any tarry black stools and describes intermittent tight pain in the left flank, and again no fevers or chills, no chest pain, no shortness of breath or cough or URI symptoms reported. She came into the ER because of the vomiting of blood. We were asked to evaluate for admission. PAST MEDICAL HISTORY: Significant for: 1. Nephrolithiasis. 2. Anxiety. 3. Depression. 4. PTSD. PAST SURGICAL HISTORY: She has had tonsillectomy. HOME MEDICATIONS: She does take vitamin D 1 tablet p.o. daily. ALLERGIES: Allergies to medication include BUSPIRONE. FAMILY HISTORY: Her mother of cancer. Her father has coronary artery disease. SOCIAL HISTORY: She works at [employer], a local [employer]. Her surrogate decision maker is her boyfriend, Felipe Waldrop. She is half a pack a day smoker for about 14 years. She does drink occasionally. She does use marijuana daily and she also has used beata and cocaine in the past, but she states she has not had done any of these in the last several months. REVIEW OF SYSTEMS: There is no documented fever. She denied having any significant weight change. There is no double vision. She denies having any ear discharge. There was no rhinorrhea. No sore throat. No thyroid enlargement. Denies any chest pain. There was no orthopnea. No nocturnal dyspnea. There was left flank pain, but no abdominal pain. There was nausea. There was vomiting. No dysuria. No frequency. No seizure. There was no loss of consciousness. No pruritus. No skin ulcerations. Review of 14 systems completed, all others are negative. PHYSICAL EXAMINATION GENERAL: At this time, Ms. Degroot is a 34-year-old female patient. She is sitting in the ED stretcher. She does not appear to be in any acute distress. She appears to be well nourished and well developed. VITAL SIGNS: Blood pressure is 150/97, pulse 96, respirations 18, O2 saturation 100% on room air, temperature 98.2. HEENT: Head: Atraumatic and normocephalic. Eyes: EOMs are intact. Sclerae anicteric and not pale. Throat: Oral mucosa appears to be moist. No oropharyngeal erythema. NECK: Supple. LUNGS: Clear to auscultation. No wheezes, rales, or rhonchi. HEART: Heart sounds S1, S2. Regular rate and rhythm. No murmurs, rubs, or gallops. ABDOMEN: Soft, flat. There was CVA tenderness noted. EXTREMITIES: Pulses are 2+ throughout. She is moving all 4 extremities with 5/ 5 strength. NEUROLOGIC: The patient is awake. She is alert and oriented x3. No gross focal deficits. SKIN: Grossly intact. DIAGNOSTIC STUDIES/LAB DATA: The labs today revealed WBC of 18.4, RBC of 4.54 , hemoglobin 13.4, hematocrit 38, platelet count of 304. INR is 1.10. Sodium 136, potassium 3.9, chloride 95, bicarbonate 28, BUN 10, creatinine 0.57, glucose 92, calcium 9.6. Total bilirubin 0.5, AST 17, ALT 30, alkaline phosphatase 50. CRP less than 1. Lipase less than 10. Beta-hCG negative. Albumin 5.0. She had an abdomen and pelvis CT obtained today which revealed no clear etiology for abdominal pain. This was a contrast study. Renal ultrasound on 10/30/19, again impression: No definite obstruction, but question of nonobstructing calculi in the upper pole of the left kidney 0.[address] dated same day showed no acute intraabdominal findings. Old medical records reviewed. ASSESSMENT AND PLAN: Mrs. Degroot is a 34-year-old female patient coming into the ED today with complaints of left flank pain. CT of the abdomen and pelvis is negative. Unfortunately, she has also been having hematemesis, and because of this, we were asked to evaluate for admission and she will be admitted under observation status for: 1. Hematemesis. At this point, I suspect that she probably has Megan-John tear. GI has been consulted. They recommended b.i.d. PPI, which has been ordered. I will place her on 2 saline locks. We will check H and H every 6 hours. I will also obtain a type and screen, and we will make her n.p.o. after midnight for possible EGD in the morning. GI has been consulted. 2. Left flank pain. Etiology is unclear. CT of the abdomen and pelvis was negative, this was contrasted. I am going to repeat the renal ultrasound in the morning. She does have an elevated white count of unclear etiology. It could be related to possible pyelo, but again CT was negative, it could be leukemoid reaction to the vomiting, so I will place her on antibiotics and panculture. 3. Leukocytosis, again unclear etiology, could be secondary leukemoid reaction to the vomiting. I will panculture and give her 1 dose of Rocephin. I am not giving her the 30 mL/kg bolus. She did have element of SIRS with the elevated heart rate and the white count, however, no obvious source of infection. I am waiting on a urine. At this point, I am holding off on chest x-ray because she is not having any respiratory symptoms. 4. Anxiety and depression. Continue with supportive care. 5. Posttraumatic stress disorder. Continue with supportive care. 6. DVT prophylaxis. I have ordered SCDs because of the possible Megan-John tear and hematemesis. 7. Code status: Full code. 8. Fluids, electrolytes, and nutrition: She can have a clear liquid diet. She will be n.p.o. after midnight. TIME SPENT: Time spent on the admission 60 minutes, greater than half the time was spent [id number] with the patient obtaining my history of physical; the other half time was spent going over the plan of care with the patient and implementing plan of care. I did discuss the plan of care with my attending, Dr. Camarena, and she is in agreement. TONY ANAYA NP [id number]/[facility] #: [id number] CHARLENE
[2019-11-19 04:03] LABS: ABS Basophils 0.1 10^3/ul (0-0.2); ABS Lymphocytes 2.2 10^3/ul (1.0-4.8); ABS Monocytes 0.8 10^3/ul (0-0.8); Eosinophil % 0.3 %; Hematocrit 33 % (35-47); Hemoglobin 11.2 g/dL (12.0-16.0); Lymphocyte % 18.1 %; Mean Corpuscular HGB Conc 34 g/dL (31-36); Mean Corpuscular Hemoglobin 29 pg (27-31); Mean Corpuscular Volume 84 fL (80-97); Platelet Count 232 10^3/uL (150-450); Red Cell Distribution Width 14 % (10-15); White Blood Count 12.1 10^3/uL (3.5-10.8)
[2019-11-19 04:19] LABS: BUN/Creatinine Ratio 14.5 (8-20); Calcium 8.1 mg/dL (8.6-10.3); EGFR African American 133.3 (>60); EGFR Non-African American 110.2 (>60); Potassium 3.4 mmol/L (3.5-5.0)
[2019-11-19] MEDS: KCL 10 MEQ/50 ML IVPREMIX* 10 MEQ/50 ML BAG IV SCH ×3 (07:22→12:38)
[2019-11-19] MEDS ORDERED: Potassium Chlor TAB* 20 MEQ TAB.ER PO ONE ×2 (07:43)
[2019-11-19] MEDS ORDERED: Pantoprazole IV* 40 MG IV SCH (08:00)
[2019-11-19] MEDS: NS 0.9% 1000 ML** 1,000 ML IV SCH (08:41)
[2019-11-19 09:50] LABS: Magnesium 1.7 mg/dL (1.9-2.7)
[2019-11-19] MEDS ORDERED: Magnesium Sulfate 2 GM IV* 2 GM/50 ML BAG IVPB ONE (09:56)
[2019-11-19 11:15] LABS: Hematocrit 32 % (35-47); Hemoglobin 10.8 g/dL (12.0-16.0)
[2019-11-19] MEDS ORDERED: fentaNYL* 50 MCG/ML 2 ML VIAL (100 MCG VIAL) ONE ×2 (13:47)
[2019-11-19] MEDS ORDERED: diPHENhydraMINE IV* 50 MG/ML 1 ml VIAL (BENADRYL) ONE ×2 (13:48)
[2019-11-19] MEDS ORDERED: Midazolam* 1 MG/ML 10 ML VIAL (10 MG) ONE ×2 (13:48)
--- NOTE | 2019-11-19 15:19 | CONS ---
CC: Primary Care Doctor* CONSULTATION REPORT: DATE OF CONSULT: 11/19/19 REQUESTING PROVIDER: Tony Anaya NP. REASON FOR CONSULTATION: Hematemesis. HISTORY OF PRESENT ILLNESS: This is a pleasant 34-year-old female with a past medical history of anxiety, depression, and kidney stones, who presented to the emergency room after vomiting and she saw scant streaks of blood. During the course of the evening, the blood became more ne in appearance and she presented to the emergency room. She states that she did have retching before. She has had ongoing flank pain over the last few months and a workup for a renal nephrolithiasis is in progress. She is due to see Urology. She has had no further emesis since yesterday evening. She denies any melena or hematochezia. Denies any diarrhea or constipation. She does admit to epigastric discomfort. She admits to Motrin usage a few times a month. The epigastric discomfort can be 4 to 5/10, can be worse with fatty meals. She had an ultrasound in the past without evidence of cholelithiasis and was working on contacting our office for an outpatient evaluation. She denies any weight loss or weight gain. She states that she does have symptomatic reflux, however, that has improved after eliminating alcohol during the COVID pandemic. She states she has not had a drink in about a month, however, before that was a nightly drinker. Remainder of the 14-point review of systems is grossly negative except as described in the HPI. PAST MEDICAL HISTORY: 1. Nephrolithiasis. 2. Anxiety. 3. Depression. 4. PTSD. PAST SURGICAL HISTORY: Tonsillectomy. HOME MEDICATIONS: Vitamin D. ALLERGIES: Include BUSPIRONE. FAMILY HISTORY: No family history of GI cancer or inflammatory bowel disease. SOCIAL HISTORY: She works at a local restaurant, [employer]. She smokes about half pack a day but states she is down to a quarter pack. She was a nightly drinker up until about a month ago but now has not had any alcohol in a month. Has used marijuana frequently. REVIEW OF SYSTEMS: Remainder of the 14-point review of systems is grossly negative except for as described in the HPI. PHYSICAL EXAM: Vital Signs: Blood pressure is 102/61, pulse 77, respiratory rate 16, temperature is 98.1. General: Alert and oriented x3, in no acute distress. HEENT: Atraumatic, normocephalic. Pupils are equal, round and reactive to light. Extraocular movements are intact. Conjunctivae are pink. Sclerae are anicteric. Cardiovascular: Regular rate and rhythm. S1, S2. Respiratory: Clear to auscultation bilaterally. Abdomen: Soft, nontender, nondistended. Bowel sounds positive. Extremities: No clubbing, no cyanosis, no edema. Psych: Appropriate mood and affect. Slightly pressured speech. LABORATORY DATA: Hemoglobin on presentation 13.4, today is 10.8; platelet count is 232. INR 1.10. BUN is 9, creatinine 0.62. Lactic acid on presentation was 2.1, now 1.3. She had a CT of the abdomen and pelvis on 11/18/19. There was evidence of esophagitis but otherwise no clear etiology for abdominal pain. She had an abdomen and bladder ultrasound on 11/19/19. That did not reveal hydronephrosis but did have a 0.3 cm echogenic lesion at the left lower pole of the kidney. ASSESSMENT AND PLAN: This is a 34-year-old female with epigastric pain and hematemesis. 1. Hematemesis. Most likely scenario is Megan John tear, however, has had enough risk factors for severe esophagitis with alcohol use along with NSAIDs use for potential peptic ulcer disease. I discussed the risks, benefits, and alternatives and she would like to proceed with upper endoscopy today. 2. Gastroesophageal reflux disease. We will plan on likely PPI therapy pending above findings. 3. Epigastric pain. Will need outpatient evaluation. There is no clear source seen today. Ultrasound of the gallbladder on 08/29/19 did not reveal any evidence of cholelithiasis. 4. Flank pain. She will followup with Urology as an outpatient. [id number]/[facility] #: [id number] [facility]
--- NOTE | 2019-11-19 15:42 | PN ---
Progress Note - Progress Note Date of Service: 11/19/19 Note: GI Brief EGD Note E: LA-C erosive esophagitis, small healing yulisa victor tear. No fresh or old blood G: Mild gastritis bx for lacie testing. D: NML No fresh or old blood on entire exam Rec: BID PPI Pantoprazole 40mg for 3 months Repeat EGD in 3 months time Avoid alcohol, NSAIDs, and continue reflux precautions Advance diet as tolerated ok to be d/c when tolerating diet. Ruy Raman DO 11/19/19 1344
--- NOTE | 2019-11-19 16:10 | PRO ---
ESOPHAGOGASTRODUODENOSCOPY REPORT: DATE OF PROCEDURE: 11/19/19 INDICATION FOR PROCEDURE: Hematemesis. PROCEDURE PERFORMED: Complete esophagogastroduodenoscopy with biopsies. MEDICATIONS GIVEN: Include: 1. Midazolam 13 mg IV. 2. Fentanyl 125 mcg IV. 3. Benadryl 15 mg IV. DESCRIPTION OF PROCEDURE: After the EGD procedure including the risks, benefits , and alternatives with the risks not limited to perforation, surgery, missed lesions, and/or were explained to the patient, written informed consent was obtained, IV medication was given, and a bite-block was placed between the teeth. The adult Olympus gastroscope was then inserted into the patient's oropharynx into the tubular esophagus. The tubular esophagus had LA-C erosive reflux. There was also evidence of a linear healing Megan-John tear along the junction. No active bleeding was noted. The scope was advanced through the lower esophageal sphincter into the stomach. Mild gastritis was noted in the antrum. This was biopsied for AMADOR testing. On retroflexion, no significant hiatal hernia was appreciated. Scope was advanced through the widely patent pylorus into the duodenal bulb, C-loop, distal duodenum. These were normal in appearance. The scope was then removed from the patient. She tolerated the procedure well. She was returned to the recovery room in stable condition. IMPRESSION: 1. Complete esophagogastroduodenoscopy with biopsies. 2. LA-C erosive reflux. 3. Small healing Megan-John tear, no active bleeding. 4. Mild gastritis. Biopsied for AMADOR testing. RECOMMENDATIONS: We will place the patient on PPI therapy for 3 months time b.i.d. We will repeat an EGD with MAC anesthesia in 3 months. Recommend she continue to avoid alcohol in addition to adhering to reflux precautions. May advance diet as tolerated and may be discharged from a GI point of view. [id number]/[facility] #: [id number] [facility]
[2019-11-19 18:50] VITALS: BP 107/70
--- NOTE | 2019-11-19 21:18 | DS ---
CC: Elliot Chan [facility]; Dr. Ruy Raman; Dr. Hoda Mitchell* DISCHARGE SUMMARY: DATE OF ADMISSION: 11/18/19 DATE OF DISCHARGE: 11/19/19 PRIMARY CARE PROVIDER: Elliot Foss. OTHER PROVIDER: Dr. Ruy Raman. ATTENDING PHYSICIAN: Dr. Hoda Mitchell* (dictated by CECIL Villalba). PRIMARY DIAGNOSES: 1. Vomiting. 2. Healing Megan-John tear, esophagitis, gastritis. 3. Right kidney lesion. 4. Abdominal, back pain, left flank pain. SECONDARY DIAGNOSES: 1. Nephrolithiasis. 2. Anxiety/depression. 3. PTSD. STUDIES WHILE IN THE HOSPITAL: 1. CT abdomen and pelvis, impression: No clear etiology for abdominal pain. On further review, esophagitis is characterized by submucosal edema of the partially visualized distal esophagus. 2. Renal and bladder ultrasound, impression: 0.8 cm echogenic lesion of the lower pole of the right kidney. The sonographic features are most consistent with angiomyolipoma, though there is no correlation on recent CT. Recommend 6- month followup sonography of the kidneys. No hydronephrosis or nephrolithiasis. No postvoid residual. PROCEDURES WHILE IN THE HOSPITAL: EGD, impression: Complete EGD with biopsies. LA-C erosive reflux. Small healing Megan-John tear, no active bleeding. Mild gastritis. Biopsies for AMADOR testing. PPI for 3 months b.i.d. Repeat EGD with MAC anesthesia in 3 months. Recommend avoiding alcohol, adhering to reflux precautions, may advance diet as tolerated and maybe discharge from GI point of view. DISCHARGE MEDICATIONS: Home Medications: Cholecalciferol 1 tab p.o. daily. [place]ad Medications: 1. Pantoprazole 40 mg p.o. b.i.d. 2. Oxycodone/acetaminophen 5/325 one half p.o. q.8 hours p.r.n. breakthrough pain, MDD 2 tabs, prescribed 6. HISTORY OF PRESENT ILLNESS/HOSPITAL COURSE: Ms. Degroot is a 34-year-old female with past medical history of possible left nephrolithiasis on renal ultrasound 11/16/19, anxiety, depression, PTSD, who presented to the ER with complaints of left flank pain and hematemesis. The patient was admitted due to concerns for Megan-John tear. A gastroenterology consult was obtained and GI recommended EGD due to concern for possible Megan-John tear in the setting of NSAID use. An EGD was performed and revealed esophagitis, mild gastritis and a small healing Mallor- John tear without bleeding, biopsies for AMADOR testing were obtained. Gastroenterology recommends b.i.d. PPI, avoid NSAIDs and follow up with GI. Also, planning for EGD repeat in 3 months. Postprocedure, the patient is eager to be discharged. She received a meal and tolerated it well without any abdominal pain, nausea or vomiting. She will be discharged to home. The patient reports that her vomiting is due to pain. She reports pain in the back, the entire abdomen, and left flank. A CT of the abdomen and pelvis was obtained and reveals no clear etiology for abdominal pain, although does show esophagitis. The patient did have a left renal ultrasound approximately 3 weeks ago that revealed questionable nonobstructing calculi of the left kidney measuring 0.7 cm. Repeat ultrasound was done during this admission and showed no hydronephrosis or nephrolithiasis bilaterally. With this, there is little evidence that the patient has kidney stones, also there is no other apparent cause for the patient's pain. She is following up with Dr. Raman due to some reported abnormality noted on gallbladder ultrasound. Upon chart review, last gallbladder ultrasound was 08/29/19 and showed no acute sonographic pathology. Regardless, she does have followup with GI for further workup. At this time, she has requested some medications for breakthrough pain and therefore she was given Percocet, prescribed 6 for breakthrough pain. She will follow up with [facility] for further management and will follow up with Dr. Raman as scheduled. Ms. Degroot is stable for discharge. She denies headaches , dizziness, lightheadedness, vision changes, although she does report that she feels "groggy" and is seen postprocedure. She denies chest pain, shortness of breath, cough, fever, chills. She has mild diffuse abdominal pain, left flank pain without recent nausea, vomiting, diarrhea or constipation. She has no other complaints today. Ms. Degroot is sable for discharge home. Vital Signs: Temperature 98.0 temporal , heart rate 84, respiratory rate 16, oxygen saturation 100% on room air, blood pressure 107/70. PHYSICAL EXAMINATION: General: Ms. Degroot is a well-developed, well-nourished young, white female, who is lying in bed. She falls asleep intermittently during our conversation, but is more awake when she sits up, although still groggy appearing. She appears to be in no acute distress and is moving without difficulty. HEENT: PERRL. EOMI. Nonicteric sclerae. Hearing is grossly intact. Oral mucous membranes are moist. There are no lesions. Pharynx is clear. Tongue is at midline. Palate elevates symmetrically. Cardiovascular: Regular rate and rhythm with S1 and S2 present. No murmurs, rubs, clicks or gallops. There is no JVD or peripheral edema. Pulmonary: Symmetrical chest expansion without use of accessory muscle, clear to auscultation bilaterally without rhonchi, wheeze or rales. Abdomen: Bowel sounds in all quadrants. The abdomen is diffusely tender to palpation. Mejia sign is negative. There is positive CVA tenderness on the left flank and thoracolumbar spine tender to palpation. Musculoskeletal: Full range of motion without pain or deformities. Neuro: Awake, alert and oriented x3. Moves all of the extremities without difficulty. DISCHARGE PLAN: Ms. Degroot will be discharged to home. CONDITION: Good. DIET: 1. Resume home diet. 2. Avoid alcohol, NSAIDs such as ibuprofen, Motrin, Naproxen, Aleve. ACTIVITY: As tolerated. MEDICATIONS: 1. Pantoprazole 40 mg p.o. b.i.d. x3 months. 2. Tylenol p.r.n. pain; Percocet p.r.n. breakthrough pain. 3. Do not use NSAIDs. EDUCATION: 1. Follow up with primary care provider in 4 to 7 days to discuss recent hospitalization, need for repeat renal ultrasound in 6 months to follow up on right kidney lesion. 2. Follow up with Dr. Raman, repeat EGD in 3 months. 3. Return to the ER or nearest hospital if she experience any return or worsening symptoms, chest pain, discomfort, shortness of breath, dizziness, lightheadedness, loss of consciousness, high fevers, chills, night sweats or any other worrisome signs or symptoms. This is a summarized report of complex medical history and hospital stay. For further details, please see the entire medical record. TIME SPENT: Approximately 35 minutes were spent on this discharge. Greater than half that time was spent [id number] with the patient discussing discharge plans and instructions. CECIL SEGOVIA [id number]/[facility] #: [id number] MTDAdrianna
== END 2019-11-19 19:30 | disposition home or self-care (01) ==
LOC: ED 16:57 → SSU 21:15
PROVIDERS: ADMIT Hospitalist; ATTEND Internal Medicine
DX: K92.0 Hematemesis (principal); K22.6 Gastro-esophageal laceration-hemorrhage syndrome; K29.70 Gastritis, unspecified, without bleeding; N20.0 Calculus of kidney; F41.9 Anxiety disorder, unspecified; N28.9 Disorder of kidney and ureter, unspecified; F32.9 Major depressive disorder, single episode, unspecified; R10.84 Generalized abdominal pain; F43.10 Post-traumatic stress disorder, unspecified; F17.210 Nicotine dependence, cigarettes, uncomplicated; Z88.8 Allergy status to other drugs, medicaments and biological substances; M54.9 Dorsalgia, unspecified; Z87.442 Personal history of urinary calculi; D72.829 Elevated white blood cell count, unspecified; Z79.899 Other long term (current) drug therapy
CPT/HCPCS: 36415; 74177; 76770; 80048; 80053; 80307; 81003; 82271; 83605; 83690; 83735; 84702; 85014; 85018; 85025; 85610; 86140; 86850; 86900; 86901; 87040; 87077; 96365; 96366; 96375; 96376; 99156; 99157; 99284; A9270-GY; G0378; G0480; J0696; J1200; J2060; J2250; J2270; J2405; J3010; J3475; J3480; Q9967

== ENCOUNTER 2023-11-18 07:45 | Inpatient (IN) ==
[2023-11-18] MEDS: Lactated Ringers 1000 ml BAG 1,000 ML IV SCH ×2 (09:48→13:26)
[2023-11-18 10:00] LABS: ABS Basophils 0.1 10^3/uL (0.0-0.1); ABS Eosinophils 0.1 10^3/uL (0.0-0.5); ABS Lymphocytes 1.5 10^3/uL (1.0-4.8); ABS Monocytes 0.6 10^3/uL (0.0-0.9); ABS Neutrophils 7.8 10^3/uL (1.5-7.6); ABS Nucleated RBC 0.01 10^3/ul; Eosinophil % 0.6 %; Hemoglobin 10.9 g/dL (11.5-14.3); Lymphocyte % 14.9 %; Mean Corpuscular Hemoglobin 26.9 pg (27-33); Mean Platelet Volume 8.9 fL (7.5-11.2); Nucleated Red Blood Cells % 0.1 %/100WBC (0.0-0.8); Platelet Count 224 10^3/uL (150-450); Red Blood Count 4.06 10^6/uL (3.63-4.92); Red Cell Distribution Width 14.5 % (12-17)
[2023-11-18] MEDS: Sodium Citrate/Citric Acid LIQ 15 ML UDC PO ONE ×2 (10:16→11:11)
[2023-11-18] MEDS ORDERED: Morphine PF AMP (0.5MG/ML) 5 MG/10 ML AMP ONE (10:34)
[2023-11-18] MEDS ORDERED: Phenylephrine IV 10 MG/ML 1 ml VIAL ONE (10:34)
[2023-11-18] MEDS ORDERED: fentaNYL 100 mcg/2 ml 50 MCG/ML VIAL ONE (10:34)
[2023-11-18] MEDS: Buffered Lidocaine 1% SYRIN 1 ml INTRADERM ONE ×2 (10:40)
[2023-11-18] MEDS: ceFOXitin 2 GM IVPREMIX 2 GM/50 ML BAG IVPB ONE (11:38)
[2023-11-18] MEDS ORDERED: Oxytocin 10 UNITS/ML 1 ML VIAL ONE (11:50)
[2023-11-18] MEDS ORDERED: Ondansetron 4 mg VIAL 2 MG/ML 2 ml VIAL ONE (12:23)
[2023-11-18] MEDS ORDERED: Dexamethasone IV 4 MG/ML VIAL 1 ml VIAL ONE (12:23)
[2023-11-18] MEDS ORDERED: Witch Hazel PAD JAR TOPICAL PRN (12:58)
[2023-11-18] MEDS ORDERED: Glycerin ADULT 2.4 gm SUPP PR PRN (12:58)
[2023-11-18] MEDS ORDERED: Lactated Ringers 1000 ml BAG 1,000 ML IV SCH (13:00)
[2023-11-18] MEDS ORDERED: Scopolamine 1 mg/72hr PATCH TRANSDERM PRN (13:01)
[2023-11-18] MEDS ORDERED: Metoclopramide 5 MG/ML VIAL (10 mg) IV PRN (13:01)
[2023-11-18] MEDS ORDERED: Ondansetron 4 mg VIAL 2 MG/ML 2 ml VIAL IV PRN (13:01)
[2023-11-18] MEDS ORDERED: Naloxone 0.4 mg VIAL 0.4 mg/ml 1 ml VIAL IV PRN (13:01)
[2023-11-18] MEDS ORDERED: Naloxone 0.4 mg VIAL 0.4 mg/ml 1 ml VIAL IV PUSH PRN (13:01)
[2023-11-18] MEDS: Lactated Ringers 1000 ml BAG 1,000 ML IV ONE (13:26)
[2023-11-18 13:38] LABS: Urine Appearance Clear; Urine Bilirubin Negative (Negative); Urine Blood Negative (Negative); Urine Color Colorless; Urine Glucose Negative (Negative); Urine Ketones Negative (Negative); Urine Nitrite Negative (Negative); Urine Protein Negative (Negative); Urine Specific Gravity 1.004 (1.002-1.030); Urine Urobilinogen Negative (Negative)
[2023-11-18] MEDS: Acetaminophen IV 1 GM/100ML 1,000 MG/100 ML BAG IV PRN (13:41)
[2023-11-18] MEDS: Oxytocin in LR 20,000 MILLI.UNIT/1,000 ML BAG IV SCH (14:04)
[2023-11-19 06:13] LABS: ABS Eosinophils 0.1 10^3/uL (0.0-0.5); ABS Lymphocytes 1.9 10^3/uL (1.0-4.8); ABS Neutrophils 9.4 10^3/uL (1.5-7.6); Eosinophil % 0.5 %; Hematocrit 24.5 % (35-45); Hemoglobin 8.1 g/dL (11.5-14.3); Lymphocyte % 15.4 %; Mean Corpuscular Hemoglobin 26.3 pg (27-33); Mean Corpuscular Hgb Conc 33.2 g/dL (31-36); Mean Corpuscular Volume 79.4 fL (80-97); Platelet Count 185 10^3/uL (150-450); Red Blood Count 3.09 10^6/uL (3.63-4.92); Red Cell Distribution Width 14.1 % (12-17); White Blood Count 12.5 10^3/uL (3.8-11.8)
[2023-11-20 10:04] VITALS: BP 131/74
== END 2023-11-20 15:15 | disposition home or self-care (01) | DRG 540 ==
LOC: MCHOB 09:10
PROVIDERS: ADMIT Obstetrics & Gynecology; ATTEND Obstetrics & Gynecology